=== PATIENT | female | born 2005 | race Caucasian/White ===

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

== ENCOUNTER 2024-01-09 16:07 | Outpatient (CLI) | payer BC, MEDICAID, SELFPAY ==
--- NOTE | ~2024-01-09 | US_ITS ---
EXAMINATION: US OB limited w BPP DATE: 01/09/2024 18:36 INDICATION: Leakage of fluid. Third trimester. TECHNIQUE: Real-time pelvic ultrasound was performed. COMPARISON: Ultrasound 11/07/2023 FINDINGS: There is a single living fetus in vertex presentation. The placenta is posterior. heart rate i s 154 beats per minute (bpm). The amniotic fluid index is 5.8 cm which is low (5th percentile is 7.5 cm). Biophysical profile performed by the technologist: breathing (30 sec sustained breathing in 30 minutes): 2 out of 2 movement (3 gross body movements in 30 minutes): 2 out of 2 tone (one episode of tijgnzw-nulabgyvp-hybdmif limb movement): 2 out of 2 Amniotic fluid pocket (2 cm): 2 out of 2 Total score: 8 out of 8 IMPRESSION: 1. Single living fetus in vertex presentation. 2. Biophysical profile 8 out of 8. 3. Oligohydramnios. Reviewed, dictated and finalized at location E.
[2024-01-09 16:46] VITALS: RESP 18; TEMP 36.4
--- NOTE | 2024-01-09 17:53 | PC.NURSE ---
Dr. Guthrie informed of this 37 wk pt arrival with c/o leakage of fluid x's 1 at 1400 today. ROM plus was negative. Pt states Dr. Burdick had checked her fluid level and said it was borderline and that if it got any lower she would induce her. Pt felt good movement earlier today, but has only marked 4 movement in the last hour. Did eventually get a reactive NST. OK to do BPP and ANA PAULA and discharge pt to home if normal.
[2024-01-09 18:00] VITALS: BP 117/62; PULSE 101
[2024-01-09 18:13] VITALS: BP 117/62; PULSE 112
--- NOTE | 2024-01-09 18:52 | PC.NURSE ---
Talked to Dr. Guthrie at this time reported on maternal and status. Reported BPP and ANA PAULA at this time. DC orders given at this time.
== END 2024-01-09 19:10 | disposition home or self-care (01) ==
LOC: ANHOBOP 18:00 → ANHLDR 18:01
PROVIDERS: Visit Provider Obstetrics & Gynecology
DX: O42.90 Premature rupture of membranes, unspecified as to length of time between rupture and onset of labor, unspecified weeks of gestation (principal); Z3A.00 Weeks of gestation of pregnancy not specified
CPT/HCPCS: 59025; 76815; 76819; 84112; 99199

== ENCOUNTER 2024-01-24 00:04 | Inpatient (IN) | payer BC, MEDICAID, SELFPAY ==
[2024-01-24] VITALS (186 sets, daily range): BP systolic 86–139; BP diastolic 50–101; PULSE 69–148; TEMP 36.6–36.9; O2SAT 73–100; BMI 36.8
--- NOTE | 2024-01-24 00:29 | LDADM ---
This patient, Meghna Vazquez, was admitted to Labor/Delivery/Recovery 104 on 01/24/24 at 00:04. Plans for labor, pain management and were discussed with patient. Patient/family oriented to hospital policies and general routines including ID bracelet, bed and alarms, visiting hours, pain management, procedures, bathroom and other care routines, personal items, smoking policy, room service/diet and guest tray routines, security routines, and visiting hours. Patient/Family are encouraged to report perceived risks to care and to ask questions if they do not understand what they are told or what they should do. See OBIX for further documentation.
[2024-01-24 00:58] LABS: Basophils Percent Auto 0.2 % (0.2-1.2); Eosinophils Absolute Auto 0.1 K/mm3 (0-0.3); Hemoglobin 12.5 g/dL (12.0-15.0); Immature Granulocyte Absolute 0.04 K/mm3 (0.00-0.031); Immature Granulocyte Percent A 0.4 % (0-0.5); Lymphocytes Absolute Auto 1.78 K/mm3 (0.9-3.2); Lymphocytes Percent Auto 16.8 % (18.3-44.2); Mean Corpuscular HGB Conc 34.7 g/dl (32-36); Mean Corpuscular Hemoglobin 30.1 pg (26-34); Mean Corpuscular Volume 86.7 fl (80-100); Mean Platelet Volume 10.4 fl (7.4-10.4); Monocytes Absolute Auto 0.9 K/mm3 (0.1-0.6); Monocytes Percent Auto 8.4 % (2.6-8.5); Neutrophils Absolute Auto 7.8 K/mm3 (1.3-6.7); Neutrophils Percent Auto 73.2 % (45.5-73.1); Platelet Count Result 256 k/mm3 (150-375); Red Blood Count 4.15 M/mm3 (4.2-5.4); Red Cell Distribution Width 12.2 % (11.5-14.5); White Blood Count 10.6 K/mm3 (4.5-10.0)
[2024-01-24] MEDS: miSOPROStol 25 MCG TABLET 50 MCG PO ×3 (01:05→09:04)
--- NOTE | 2024-01-24 07:32 | WPDANESEPP ---
Anes - Eval Pre Procedure Procedure: labor epidural Date/Time: 01/24/24 07:32 Pre Op Diagnosis: IOL Patient Data Age: 18 Gender: F Height: 1.73 m Weight: 110 kg Last Vital Signs Temp 36.8 C 01/24/24 05:24 Pulse 104 H 01/24/24 07:30 BP 127/84 01/24/24 07:30 O2 Del Method Room Air 01/24/24 00:42 Allergies Allergy/AdvReac Type Severity Reaction Status Date / Time No Known Allergies Allergy Unknown Verified 01/24/24 06:46 Home Medications Medication Instructions Recorded Confirmed Type vit no.95-ferrous 1 tablet PO DAILY 01/09/24 01/24/24 History fumarate 28 mg-folic acid 800 mcg tablet () Laboratory Tests 01/24/24 00:18 WBC 10.6 H K/mm3 (4.5-10.0) RBC 4.15 L M/mm3 (4.2-5.4) Hgb 12.5 g/dL (12.0-15.0) Hct 36.0 L % (37.0-47.0) MCV 86.7 fl (80-100) MCH 30.1 pg (26-34) MCHC 34.7 g/dl (32-36) RDW 12.2 % (11.5-14.5) Plt Count 256 k/mm3 (150-375) MPV 10.4 fl (7.4-10.4) Immature Gran % (Auto) 0.4 % (0-0.5) Neut % (Auto) 73.2 H % (45.5-73.1) Lymph % (Auto) 16.8 L % (18.3-44.2) Bullock % (Auto) 8.4 % (2.6-8.5) Eos % (Auto) 1.0 % (0-4.4) Baso % (Auto) 0.2 % (0.2-1.2) Lymph # (Auto) 1.78 K/mm3 (0.9-3.2) Bullock # (Auto) 0.9 H K/mm3 (0.1-0.6) Eos # (Auto) 0.1 K/mm3 (0-0.3) Baso # (Auto) 0.0 K/mm3 (0.0-0.1) Abs Immat Gran (auto) 0.04 H K/mm3 (0.00-0.031) Absolute Neuts (auto) 7.8 H K/mm3 (1.3-6.7) Absolute Nucleated RBC 0.000 K/mm3 (0.0-0.012) Nucleated RBC % 0.0 % (0.0-0.2) RPR Pending Blood Type O Positive Antibody Screen Negative Patient hx anesthesia problems: none Family hx anesthesia problems: none Results Review: All pre-operative results and documents have been reviewed as part of the pre-operative evaluation. [facility] Family History Family History Mother Breast cancer Pancreatic carcinoma Grandparent Cancer Sibling History of open heart surgery Social History Social History Smoking status: Former smoker Second hand tobacco smoke exposure: No Alcohol intake: never Substance use: never Substance use type: does not use Do You Feel Safe in your Home?: Yes Lack of Transportation: No Lack of Food: Never True Current Housing: I Have Housing Concerned About Future Housing: No Difficulty Paying Gas/Electric Bills: No Difficulty Paying for Meds: No Currently Unemployed: No Education: High School Diploma/GED Difficulty w/ Childcare or Family Care: No Living arrangements: with family Occupation/Education: student Spiritual care concerns: No Exam Day of Procedure 01/24/24 07:32 Patient weight: obese Heart: regular rate and rhythm Lungs: normal air movement Airway: Mallampati scale Neurological: alert and oriented
--- NOTE | 2024-01-24 07:43 | WPDOBADMIT ---
Obstetrics - Admit Note Admission Note: record reviewed. No pertinent additions to the history and/or any subsequent changes in the physical findings that are not consistent with the expected course of the were found. Additions to the history and/or subsequent changes in the physical findings follow. elective IOL, SVE /-2 soft, plan cytotec anticpate vaginal delivery
[2024-01-24 11:24] LABS: Rapid Plasma Reagin Non-Reactive (NonReactive)
[2024-01-24] MEDS: LACTATED RINGERS 1,000 ML 125 ML IV CONT ×3 (14:34→21:00)
[2024-01-24] MEDS: OXYTOCIN 30 UNITS/NS 500 ML 30 UNITS/500 ML BAG IV CONT (14:38)
[2024-01-24] MEDS: diphenhydrAMINE HCl INJ 50 MG/ML VIAL 25 MG IV PUSH (18:51)
[2024-01-25] VITALS (114 sets, daily range): BP systolic 100–129; BP diastolic 45–93; PULSE 31–230; RESP 16–18; TEMP 36.6–37.2; O2SAT 76–100
[2024-01-25] MEDS: LACTATED RINGERS 1,000 ML 125 ML IV CONT (01:39)
--- NOTE | 2024-01-25 05:04 | P.PCNOB_ITS ---
OB - Vaginal Delivery Note Procedure Delivery date: 01/25/24 Induction method: AROM and Per Misoprostol Protocol Delivery monitor: External FHT and Internal Uterine Route of delivery: Episiotomy description: None Laceration Description: Perineal - 1st Degree Delivery repair: vicryl Specimen: No Quantitative Blood Loss (ml): 100 Anesthesia type: Epidural Disposition: Floor Complications: No immediate complications [place] Baby Date of : 01/25/24 Time of : 04:49 Weeks of gestation at delivery: 39 Infant gender: Female Weight (pounds): 7 Weight (ounces): 0 presentation: vertex position: Left Occiput Posterior Placenta delivery description: Spontaneous Cord Vessel Description: 3 Vessels and Nuchal Cord (x1) score one minute: 7 score five minutes: 9 Narrative: mother and baby in stable condition
[2024-01-25] MEDS: OXYTOCIN 30 UNITS/NS 500 ML 30 UNITS/500 ML BAG 125 UNITS IV CONT (05:21)
[2024-01-25] MEDS: ACETAMINOPHEN 325 MG TABLET 650 MG PO (06:47)
[2024-01-25] MEDS: BENZOCAINE 20% AER SPR (*SP) 56 GM CAN 1 SPRAY TOPICAL (06:48)
[2024-01-25] MEDS: WITCH HAZEL 40 PADS 1 PAD TOPICAL (06:48)
[2024-01-25] MEDS: LANOLIN (LANSINOH) 7.5 GM CREAM 1 APPLIC TOPICAL (06:52)
--- NOTE | 2024-01-25 08:39 | OBPPTRN ---
0735-Patient transferred to post room #282 via wheelchair. Support person present. Oriented to unit, room, information board, rooming in, admission packet and security measures. Patient verbalizes understanding.
[2024-01-25] MEDS: DOCUSATE SODIUM 100 MG CAPSULE PO (12:48)
[2024-01-25] MEDS: MULTIVIT/MIN/PREN/FOL AC/IRON TABLET 1 TAB PO (12:48)
[2024-01-25] MEDS: IBUPROFEN 600 MG TABLET PO (12:48)
[2024-01-26 04:50] VITALS: BP 123/72; PULSE 95; RESP 16; TEMP 36.8; O2SAT 99
[2024-01-26 06:02] LABS: Hematocrit 34.5 % (37.0-47.0); Hemoglobin 11.2 g/dL (12.0-15.0)
--- NOTE | 2024-01-26 07:40 | PM.OBPNVD ---
OB - PN: Subj Subjective Date/time seen: 01/26/24 07:40 Interval history: pp day 1 doing well flatus present, voiding without difficulty OB - PN: Obj Data Labs 01/26/24 04:53 Labs: Laboratory Results - last 24 hr 01/26/24 04:53 Hgb 11.2 L Hct 34.5 L OB - PN A/P Plan day: 1 Plan: routine care and discharge home Time Spent With Patient Time: Total time spent is greater than 50% in coordination of care (as documented) at patient's floor/unit and/or counseling patient: Review of Systems Review of Systems: All systems reviewed & are unremarkable except as noted in HPI and below Exam Const: General: cooperative, healthy appearing and comfortable Resp: Effort & Inspection: normal respiratory effort Cardio: Rate: regular rate GI: Inspection: normal to inspection Skin: General skin exam: normal color Neuro: General: patient oriented x3 Extrem: Right lower extremity: normal to inspection Left lower extremity: normal to inspection
--- NOTE | 2024-01-26 07:43 | PM.OBDSVD ---
DS: Admitting Diagnosis Discharge Date 01/26/24 Admitting Diagnosis IOL DS: Discharge Diagnosis Discharge Diagnosis (1) Vaginal delivery: Code(s): O80 - Encounter for full-term uncomplicated delivery Status: Acute OB - DS: Summary OB Procedures : None OB Procedures Intrapartum: Spontaneous Vag Delivery OB Procedures: : None Peripartum Data Laceration Description: Perineal - 1st Degree Episiotomy description: None Time Spent with Patient Time attestation: Total time spent providing and/or coordinating discharge services: DS: Data Data Completed and Pending Labs on day of discharge: Labs from last 24 hours 01/26/24 04:53 Hgb 11.2 L Hct 34.5 L Discharge Plan Discharge Attending physician on discharge: Javi Guthrie Discharging Clinician: Graciela Stephenson Patient Disposition: Home, Self-Care Activity: pelvic rest Diet: regular Patient Instructions: Antibiotic Form Stand Alone Forms: General Discharge Information Follow-up/Referrals: Graciela Stephenson, CNM [Certified Nurse Tennis Camp Instructor] - 4 Weeks Discharge Medications: New ibuprofen 600 mg Tablet 600 mg PO Q6H PRN (Reason: Cramping) Qty: 30 0RF Continued PNV cmb#95-ferrous fumarate-FA [] 28 mg iron- 800 mcg Tablet 1 tablet PO DAILY Date of admission: 01/24/24 00:04 Primary Care Provider: PHYSICIAN,INCINERATOR PLANT LABORER Admitting Provider: Kp Burdick Attending physician on admission: Kp Burdick Condition: Stable
[2024-01-26 08:00] VITALS: BP 122/83; PULSE 95; RESP 16; TEMP 36.7; O2SAT 99
[2024-01-26] MEDS: IBUPROFEN 600 MG TABLET PO (08:52)
[2024-01-26] MEDS: DOCUSATE SODIUM 100 MG CAPSULE PO (08:53)
[2024-01-26] MEDS: MULTIVIT/MIN/PREN/FOL AC/IRON TABLET 1 TAB PO (08:53)
--- NOTE | 2024-01-26 09:47 | WPDANLDPN2 ---
Anes-Prog Note L&D Date/Time: 01/26/24 09:47 Comfortable throughout: labor and delivery Neuraxial method: epidural Epidural/Spinal procedure site: clean & non-tender Neuro status: Neuro function grossly intact. Cardiovascular status: normal Respiratory status: normal Airway patency: baseline Mental status: baseline Post-Op hydration status: normal Vital Signs: Last Vital Signs Temp 36.8 C 01/26/24 04:50 Pulse 95 01/26/24 04:50 Resp 16 01/26/24 04:50 BP 123/72 01/26/24 04:50 Pulse Ox 99 01/26/24 04:50 O2 Del Method Room Air 01/25/24 08:00 Pain score (VAS): 0 Post-procedural complaints: none Patient feedback: Patient satisfied with anesthetic care.
--- NOTE | 2024-01-26 12:26 | PC.NURSE ---
Patient viewed the discharge video Mother & Baby Care, The First Two Weeks . Patient was given the opportunity and encouraged to ask questions. Patient verbalized understanding of information shared and has been given the mother/baby guide for home reference.
[2024-01-27 14:33] VITALS: BP 134/84; PULSE 90; RESP 20; TEMP 36.9; O2SAT 99
== END 2024-01-26 13:30 | disposition home or self-care (01) | DRG 807 ==
LOC: ANHLDR 00:09 → ANHOB2 01-25 07:41
PROVIDERS: Advanced Practice Midwife; Admitting Provider Obstetrics & Gynecology; Visit Provider Obstetrics & Gynecology
DX: O70.0 First degree perineal laceration during delivery (principal); Z37.0 Single live birth; O69.81X0 Labor and delivery complicated by cord around neck, without compression, not applicable or unspecified; Z3A.39 39 weeks gestation of pregnancy
CPT/HCPCS: 36415; 85014; 85018; 85025; 86592; 86850; 86900; 86901; A9270; J1200; J2590; J2795; J7120